=== PATIENT | male | born 1980 | race Caucasian/White ===

== ENCOUNTER 2021-12-29 12:07 | Emergency (ER) | payer OTHER, MEDICAID | END 2021-12-29 15:07 | disposition home or self-care (01) | LOC: JD.ED 12:07 | DX: S29.012A Strain of muscle and tendon of back wall of thorax, initial encounter (principal); L30.9 Dermatitis, unspecified; V89.2XXA Person injured in unspecified motor-vehicle accident, traffic, initial encounter; Y92.410 Unspecified street and highway as the place of occurrence of the external cause | CPT/HCPCS: 36415; 70450; 70450-26; 72070; 72070-26; 72125; 72125-26; 80053; 85025; 99284; 99284-25 ==

== ENCOUNTER 2022-02-02 03:08 | Emergency (ER) | payer MEDICAID ==
[2022-02-02 06:18] LABS: ACETAMINOPHEN 0 ug/mL (10-30)
== END 2022-02-02 10:50 | disposition home or self-care (01) ==
LOC: JD.ED 03:08
DX: F03.90 Unspecified dementia, unspecified severity, without behavioral disturbance, psychotic disturbance, mood disturbance, and anxiety (principal); Z72.0 Tobacco use; Z20.822 Contact with and (suspected) exposure to COVID-19
CPT/HCPCS: 36415; 80053; 80143; 80179; 80307; 84443; 85025; 93005; 99285-25; U0002